=== PATIENT | female | born 1970 | race African-American/Black ===

== ENCOUNTER 2019-02-26 11:21 | Outpatient (CLI) | payer OTHER ==
[2019-02-26 13:02] LABS: Hemoglobin 9.7 g/dL (12.0-16.0); Mean Corpuscular HGB CONC 30.7 g/dL (32.0-36.0); Mean Corpuscular Hemoglobin 25.2 pg (27.0-31.0); Mean Corpuscular Volume 82.2 fL (78.0-98.0); Mean Platelet Volume 8.5 fL (7.4-10.4); Platelet Count 340 thou/uL (130-400); Red Blood Cell (RBC) Count 3.83 mill/uL (4.20-5.40); White Blood Cell (WBC) Count 8.3 thou/uL (4.8-10.8)
[2019-02-26 13:08] LABS: BHCG - Serum Negative (NEGATIVE); Pregs Control Background? CLEAR/WHITE (CLR/WHITE); Pregs Control Bar Appear? YES (CONTROL BAR)
[2019-02-26 13:17] LABS: Anion Gap 14 mmol/L (10-20); BUN (Urea Nitrogen) 8 mg/dL (7.0-18.7); Calc. Creatinine Clearance 0 mL/min (70-130); Calcium 9.1 mg/dL (7.8-10.44); Carbon Dioxide 19 mmol/L (22-29); Chloride 109 mmol/L (98-107); Estimated GFR-MDRD Greater than 90; Glucose 80 mg/dL (70-105); Potassium 4.5 mmol/L (3.5-5.1); Sodium 137 mmol/L (136-145)
== END 2019-02-26 11:22 | disposition home or self-care (01) ==
LOC: LABBT 11:21
PROVIDERS: ATTEND Obstetrics & Gynecology
DX: Z01.818 Encounter for other preprocedural examination (principal); N92.0 Excessive and frequent menstruation with regular cycle; D25.9 Leiomyoma of uterus, unspecified
CPT/HCPCS: 80048; 84703; 85027; 86850; 86900; 86901; 93005; 93010

== ENCOUNTER 2019-02-28 06:09 | Day surgery (SDC) | payer OTHER ==
[2019-02-26 11:37] VITALS: BMI 38.7
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
[2019-02-28] MEDS ORDERED: Gabapentin 300 MG CAP ONE (06:18)
[2019-02-28] MEDS ORDERED: CeleCOXIB 100 MG CAP ONE (06:18)
[2019-02-28] MEDS ORDERED: Famotidine/PF 20 mg/2ml Vial ONE ×2 (06:18→06:50)
[2019-02-28] MEDS ORDERED: Bupivacaine HCl 0.5%/Epinephrine 1:200,000/PF 30 ml Vial ONE (06:39)
[2019-02-28] MEDS ORDERED: Fentanyl 100 MCG/2 ML VIAL ONE ×2 (06:50→10:19)
[2019-02-28] MEDS ORDERED: Midazolam HCl 2 mg/2 ml Vial ONE (06:50)
[2019-02-28] MEDS ORDERED: SUGAMMADEX SODIUM 500 MG/5 ML VIAL ONE ×2 (08:06→10:02)
[2019-02-28] MEDS ORDERED: Promethazine HCl 25 MG/ML VIAL SLOW IVP PRN (09:34)
[2019-02-28] MEDS ORDERED: Promethazine HCl 25 MG/ML VIAL IM PRN ×2 (09:34→10:07)
[2019-02-28] MEDS ORDERED: Ondansetron HCl/PF 4 MG/2 ML Vial IVP PRN ×2 (09:34→11:17)
[2019-02-28] MEDS ORDERED: Ketamine 50 MG/ML (10ML VIAL) ONE (10:01)
[2019-02-28] MEDS ORDERED: Simethicone Chewable 80 MG TAB PO PRN (10:07)
[2019-02-28] MEDS ORDERED: Zolpidem Tartrate 5 MG TAB PO PRN (10:07)
[2019-02-28] MEDS ORDERED: Morphine 4 MG/ML VIAL SLOW IVP PRN (10:07)
[2019-02-28] MEDS ORDERED: Bisacodyl 10 MG SUPP PR PRN (10:07)
[2019-02-28] MEDS ORDERED: HYDROcodone/Acetaminophen 5/325 mg Tablet PO PRN ×2 (10:07)
[2019-02-28] MEDS ORDERED: diphenhydrAMINE 25 MG CAP PO PRN (10:07)
[2019-02-28] MEDS ORDERED: Morphine 4 MG/ML VIAL ONE (10:42)
[2019-02-28] MEDS ORDERED: PACU-Morphine 4MG/ML VIAL SLOW IVP PRN (11:17)
[2019-02-28] MEDS ORDERED: Promethazine HCl 25 MG/ML VIAL IM/IV PRN (11:17)
[2019-02-28] MEDS ORDERED: Non-Formulary Medication 1 EACH PO PRN (11:17)
[2019-02-28] MEDS ORDERED: Morphine Sulfate 2 MG/ML SYRINGE SLOW IVP PRN (11:17)
--- NOTE | 2019-02-28 12:35 | OP ---
DATE OF PROCEDURE: 02/28/2019 PREOPERATIVE DIAGNOSES: Menorrhagia, anemia, fibroids, and obesity. POSTOPERATIVE DIAGNOSES: Menorrhagia, anemia, fibroids, and obesity. PROCEDURES PERFORMED: Total laparoscopic hysterectomy, extracorporeal retrieval bag morcellation with bilateral salpingectomy. PRODUCT INSPECTION SUPERVISOR: Dasia Jackson PA-C ANESTHESIA: General endotracheal. SPECIMENS REMOVED: Uterus and bilateral tubes. ESTIMATED BLOOD LOSS: 100 mL. OPERATIVE FINDINGS: 1. Fibroid uterus approximately 12-week size, approximately 600 g with a large fundal fibroid, intramural. 2. Normal-appearing tubes and ovaries bilaterally. 3. Hemostasis, clear urine. COUNTS: Correct at the end of the procedure. DISPOSITION: Recovery room in good condition. DESCRIPTION OF PROCEDURE: After obtaining appropriate informed consent, the patient was taken to the operating room, where general endotracheal anesthesia was achieved without difficulty. The patient was prepped and draped in dorsal lithotomy position in Héctor stirrups. The patient's previous skin grafts in the area of the vulva were identified. They did not obstruct the ability to access the vagina. Sliding speculum was placed in the vagina. Cervix was identified and grasped with a single-tooth tenaculum. Uterus sounded and dilated up, and a TREY manipulator with 3.5 cervical vaginal sales technician and a 6 cm obturator were placed without difficulty. Wells catheter was placed and placed on a 60 mL of syringe. Nitro Worker changed his gloves, turned attention to abdominal portion of the procedure. The patient had a prior recent cholecystectomy with an approximately 15 mm skin incision 4 cm above the umbilicus and this was reopened and used for Veress needle insertion. Insufflation was carried out with carbon dioxide, maximum pressure of 15. A 12 mm trocar was introduced and confirmation of entry into the peritoneal cavity was noted. The patient was placed in steep Trendelenburg position, and right and left lateral trocars lateral to the epigastric vessels were placed without difficulty as well as an 11 mm research assistant port in the right upper quadrant. Cutdown on the supraumbilical trocar was carried out to approximately 2.5 to 3 cm and a small Rayshawn O placed inside along with the GelPort. DA Zoila robot was docked with monopolar scissors in the right hand and bipolar fenestrated forceps in the left. Findings as noted in the operative findings were noted. Adhesions of omentum were taken down in the pelvis, and the fallopian tube was removed in the usual manner on the patient's left. Utero-ovarian ligament was then coagulated and transected, the broad and the round on the patient's left. Fibroids were noted and extended down into the broad ligament on this side. This was carried down to level of the internal cervical os. Vesicouterine peritoneum was taken off sharply off the cervix and upper vagina. Bladder was backfilled several times to delineate it as the patient's morbid obesity made identification of all surgical planes moderately difficult. Skeletonization of the uterine vessels carried on the left. Attention was turned to the patient's right, where the identical procedure was carried out removing the fallopian tube, but then coagulating and transecting to the utero-ovarian, broad, round, and down the level of the internal cervical os. Skeletonization of the uterine vessels carried out on this side as well and the bladder was assured to be completely dissected off the cervix and upper vagina. Coagulation and transection of the uterine vessels on both side were carried out. The vagina was entered at 12 o'clock, extended from 12 to 3, 12 to 9, and from 6 to 9 and 6 to 3 amputating the specimen. Specimen was taken off the TREY manipulator and placed at the right upper quadrant for retrieval. Suction irrigation was carried out of the vaginal cuff and good hemostasis was noted. It was closed using a running continuous 0 PDS Stratafix suture from right to left and then back to right in a 2-layer closure technique. Suction irrigation was carried out. Good hemostasis was noted. Tisseel was applied across the all raw surfaces. Retrieval bag had been placed in the left upper quadrant and was pulled down of the pelvis and this specimen placed inside, it was pulled to the top of the GelPOINT, and then, da Zoila instruments were removed and the robot undocked. The retrieval bag was exteriorized, and the uterine specimen was morcellated using an 11-blade in the usual manner without trauma to the underlying vessels and without disruption of the retrieval bag. Once the entire specimen was removed, the small Rayshawn O was removed. The fascial edges were grasped and closed using running continuous 0 Vicryl suture on a UR5 needle. All other trocars had been removed and subcuticular closure with 4-0 Monocryl and Dermabond was carried out. The obturator balloon had already been removed from the vagina and it was re-inspected and noted to be dry. Wells was clear of urine, and the patient was awakened and extubated to recovery room in good condition. Job ID: [id number]
[2019-02-28] MEDS: Sodium Chloride 0.9% 1,000 ML IV SCH ×2 (13:04→18:04)
[2019-02-28] MEDS: Ondansetron PF 4 MG/2 ML Vial IVP PRN ×2 (14:52→20:50)
[2019-02-28] MEDS: Acetaminophen 1,000 MG in Premix Bag 1 BAG IVPB SCH ×3 (17:19→23:56)
[2019-02-28] MEDS ORDERED: CeleCOXIB 100 MG CAP PO SCH (21:00)
[2019-03-01] MEDS: Sodium Chloride 0.9% 1,000 ML IV SCH (02:08)
[2019-03-01] MEDS: Acetaminophen 1,000 MG in Premix Bag 1 BAG IVPB SCH (05:40)
[2019-03-01] MEDS ORDERED: Ibuprofen 800 MG TAB PO SCH (06:00)
[2019-03-01 06:39] LABS: Hemoglobin 7.9 g/dL (12.0-16.0); Mean Corpuscular HGB CONC 31.5 g/dL (32.0-36.0); Mean Corpuscular Hemoglobin 25.6 pg (27.0-31.0); Mean Corpuscular Volume 81.2 fL (78.0-98.0); Mean Platelet Volume 8.2 fL (7.4-10.4); Platelet Count 266 thou/uL (130-400); RBC Distribution Width 14.6 % (11.5-14.5); Red Blood Cell (RBC) Count 3.08 mill/uL (4.20-5.40); White Blood Cell (WBC) Count 8.6 thou/uL (4.8-10.8)
--- NOTE | 2019-03-01 11:02 | DIS ---
DATE OF ADMISSION: 02/28/2019 DATE OF DISCHARGE: 03/01/2019 TIME OF SERVICE: 0745 hours. HOSPITAL COURSE: The patient is postoperative day #1, hematocrit went from 32% to 25%, which is consistent with the patient's intraoperative blood loss as well as hydration. She is resting comfortably. She states her pain is 7/10, but with normal vital signs and not requesting pain medication. PHYSICAL EXAMINATION: VITAL SIGNS: Temperature 98.3, pulse 86, respirations 12, blood pressure 110/79,. T-max 98.8, maximum blood pressure 145/83. HEENT: Within normal limits. LUNGS: Clear to auscultation bilaterally. ABDOMEN: Soft and nontender with active bowel sounds in all 4 quadrants. Perineum is dry and incisions are dry x4. EXTREMITIES: Without clubbing, cyanosis, or edema. IMPRESSION: Status post total laparoscopic hysterectomy with bag retrieval morcellation, doing well, postoperative day #1. PLAN: Discharge home. Social work consult. This patient needs assistance, getting the pharmacy to picking table worker her postoperative pain medications, [place] and ibuprofen that were sent out from the office, and follow up at [facility] in 2 and 6 weeks. Job ID: [id number]
[2019-03-01 12:06] VITALS: BP 170/81; TEMP 99
== END 2019-03-01 14:07 | disposition home or self-care (01) ==
LOC: SDC 06:09 → 3SE 12:35 → UNDOADMOB 12:35 → UNDODISOB 03-01 14:07 → SDC 03-01 14:07
PROVIDERS: ATTEND Obstetrics & Gynecology
PROC: 0UT94ZZ Resection of Uterus, Percutaneous Endoscopic Approach (ICD-10-PCS; principal; 2019-03-01)
PROC: 0UT24ZZ Resection of Bilateral Ovaries, Percutaneous Endoscopic Approach (ICD-10-PCS; principal; 2019-03-01)
PROC: 0UT74ZZ Resection of Bilateral Fallopian Tubes, Percutaneous Endoscopic Approach (ICD-10-PCS; principal; 2019-03-01)
DX: D25.1 Intramural leiomyoma of uterus (principal); N72 Inflammatory disease of cervix uteri; N92.0 Excessive and frequent menstruation with regular cycle; D64.9 Anemia, unspecified; E66.9 Obesity, unspecified; Z68.38 Body mass index [BMI] 38.0-38.9, adult
CPT/HCPCS: 36415; 85027; 88307; J0131; J0670; J0690; J2250; J2270; J2405; J3010; S0028

== ENCOUNTER 2019-03-05 07:17 | Observation (INO) | payer OTHER ==
[2019-03-05 08:01] LABS: Bilirubin Negative (Negative); Blood, Urine Negative (Negative); Clarity Clear (Clear); Glucose, Urine (Dipstick) Normal (Negative); Leukocyte 250 Leu/uL (Negative); Nitrite Negative (Negative); Protein, Urine (Dipstick) 20 mg/dL (Neg-Trace); RBC/HPF 0-3 HPF (0-3); Urobilinogen Normal mg/dL (Less than 2)
[2019-03-05 08:11] LABS: Bacteria/HPF 1+ HPF (None Seen)
[2019-03-05] MEDS ORDERED: Ondansetron PF 4 MG/2 ML Vial ONE ×2 (08:29→10:47)
[2019-03-05 08:35] LABS: #Basophils 0.1 thou/uL (0.0-0.2); #Eosinphils 0.6 thou/uL (0.0-0.7); #Lymphocytes 3.1 thou/uL (1.20-3.40); #Monocytes 0.6 thou/uL (0.11-0.59); #Neutrophils 3.6 thou/uL (1.40-6.50); %Basophils 1.1 % (0.0-1.0); %Eosinophils 7.1 % (0.0-10.0); %Monocytes 7.8 % (0.0-10.0); %Neutrophils 45.1 % (42.0-75.0); Hemoglobin 8.8 g/dL (12.0-16.0); Mean Corpuscular HGB CONC 30.5 g/dL (32.0-36.0); Mean Corpuscular Hemoglobin 24.7 pg (27.0-31.0); Mean Corpuscular Volume 81.2 fL (78.0-98.0); Mean Platelet Volume 8.2 fL (7.4-10.4); Platelet Count 304 thou/uL (130-400); RBC Distribution Width 15.2 % (11.5-14.5); Red Blood Cell (RBC) Count 3.55 mill/uL (4.20-5.40)
[2019-03-05 08:43] LABS: PTT 27.6 SEC (22.9-36.1); Prothrombin Time 12.6 SEC (12.0-14.7)
[2019-03-05 08:55] LABS: ALT (SGPT) 46 U/L (8-55); AST (SGOT) 17 U/L (5-34); Albumin 3.8 g/dL (3.5-5.0); Alkaline Phosphatase 102 U/L (40-110); Anion Gap 13 mmol/L (10-20); BUN (Urea Nitrogen) 9 mg/dL (7.0-18.7); Bilirubin, Total 0.2 mg/dL (0.2-1.2); Calc. Creatinine Clearance 0 mL/min (70-130); Calcium 9.3 mg/dL (7.8-10.44); Carbon Dioxide 24 mmol/L (22-29); Chloride 108 mmol/L (98-107); Estimated GFR-MDRD 86; Globulin 3.8 g/dL (2.4-3.5); Glucose 91 mg/dL (70-105); Lipase 9 U/L (8-78); Potassium 3.6 mmol/L (3.5-5.1); Protein, Total 7.6 g/dL (6.0-8.3); Sodium 141 mmol/L (136-145)
[2019-03-05] MEDS ORDERED: Morphine 4 MG/ML VIAL ONE (10:47)
--- NOTE | 2019-03-05 11:16 | CT ---
CT ABDOMEN AND PELVIS WITH IV CONTRAST: HISTORY: Abdominal pain status post hysterectomy on 03/02/2019. FINDINGS: The lung base is unremarkable. There are changes of hysterectomy and cholecystectomy. The liver, sple en, pancreas, adrenal glands, and kidneys are normal. There is a small amount of free fluid in the pe lvis, likely from recent surgery. There is an anterior abdominal wall hernia containing a loop of small bowel. There is an air-fluid le codie with surrounding inflammatory change and a tiny amount of air in the subcutaneous fat. The possib ility of strangulation should be considered. The other possibility is an abscess. IMPRESSION: Findings suspicious for a strangulated bowel containing anterior abdominal wall hernia with questiona ble perforation. The other possibility is abscess formation in this region. Discussed over the telephone with ER physician Dr. Chano Dos Santos at 9:13 a.m. CODE RENETTA POS: TPC
[2019-03-05] MEDS ORDERED: Labetalol HCl 100 MG/20 ML VIAL ONE ×2 (11:36→16:18)
[2019-03-05] MEDS ORDERED: Piperacillin/Tazobactam 4.5 GM in Sodium Chloride 0.9% 100 ML IVPB SCH (12:00)
--- NOTE | 2019-03-05 12:14 | HP ---
HISTORY OF PRESENT ILLNESS: Ms. Landon is a 49-year-old morbidly obese woman who is postoperative day #5, status post laparoscopic total abdominal hysterectomy with bilateral salpingo-oophorectomy. The patient presented to the emergency department with 2-day history of worsening abdominal pain associated with nausea and bilious emesis. She denies any fevers or chills. She did have a bowel movement yesterday. PAST MEDICAL HISTORY: Past medical history is pertinent for uncontrolled hypertension, other pertinent past medical history includes chronic anemia. PAST SURGICAL HISTORY: Pertinent for laparoscopic cholecystectomy and laparoscopic total abdominal hysterectomy with bilateral salpingo-oophorectomy. SOCIAL HISTORY: The patient denies any cigarette smoking, ethanol, or illicit drug abuse. FAMILY HISTORY: Denies any family history of heart disease, diabetes mellitus, or cancer. PREHOSPITAL MEDICATIONS: Include hydrocodone 5 mg she was taking 1 to 2 p.o. q.4 hours p.r.n. pain, alternating this with ibuprofen 800 mg p.o. q.8 hours. ALLERGIES: THE PATIENT DENIES ANY KNOWN DRUG ALLERGIES. REVIEW OF SYSTEMS: Ten-point review of systems essentially unremarkable except as stated in past medical history and chief complaint. PHYSICAL EXAMINATION: GENERAL: Reveals a 49-year-old, normally developed woman, who is otherwise slightly confused, but interactive and appears to be in no acute distress at the time of my evaluation. VITAL SIGNS: Include blood pressure 173/86, pulse 84, respiratory rate 16, temperature 98.6 degrees Fahrenheit, oxygen saturation 100% on room air. HEENT: Normocephalic and atraumatic. Pupils are equal, round, and reactive to light and accommodation. HEART: Reveals regular rate and rhythm. No murmurs or gallops auscultated. LUNGS: Clear to auscultation bilaterally. Breathing, regular and nonlabored. ABDOMEN: Soft and obese with healed incisional scars. The patient does have a tender flocculent palpable mass, approximately 4 cm above the umbilicus in the midline, corresponding to a transverse supraumbilical port site. Liver and spleen nonpalpable below costal margin. LABORATORY DATA: Pertinent laboratory findings today include a CBC with 8,000 white blood cells, hemoglobin and hematocrit of 8.8 and 28.9 respectively. Platelet count 304,000. Metabolic profile; sodium 141, potassium 3.6, chloride is 108, bicarb is 24, BUN 9, creatinine 0.85, glucose 91. Lactic acid 0.9. Serum lipase is 9. I have personally reviewed the CT scan of the abdomen and pelvis, which is remarkable for midline abdominal wall hernia with an incarcerated small bowel loop. There is associated mesenteric fat stranding. There is associated punctate gas within the abdominal hernia sac, suspicious for perforation versus an active infectious process. IMPRESSION: Acute incarcerated versus strangulated incisional hernia. RECOMMENDATIONS: 1. Wound exploration and repair of abdominal wall hernia with possibility of partial small bowel resection and primary anastomosis. 2. Above findings and plan discussed with the patient who indicates understanding of information given. I have answered her questions. The patient has granted consent for this admission and surgical intervention. Job ID: [id number]
[2019-03-05] MEDS ORDERED: Bupivacaine/Epinephrine 0.25% 30 ML VIAL ONE (12:36)
[2019-03-05] MEDS ORDERED: Fentanyl 100 MCG/2 ML VIAL ONE ×2 (12:37→15:34)
[2019-03-05] MEDS ORDERED: Midazolam HCl 2 mg/2 ml Vial ONE (12:37)
[2019-03-05] MEDS ORDERED: HYDROmorphone 0.5 MG/0.5 ML SYRINGE ONE (12:38)
[2019-03-05] MEDS ORDERED: Ondansetron HCl/PF 4 MG/2 ML Vial IVP PRN (12:44)
[2019-03-05] MEDS ORDERED: Lidocaine 2% Jelly 5 ML TUBE ONE (13:05)
[2019-03-05] MEDS ORDERED: Piperacillin/Tazobactam 3.375 GM VIAL ONE (13:46)
[2019-03-05] MEDS ORDERED: SUGAMMADEX SODIUM 200 MG/2 ML VIAL ONE (14:21)
[2019-03-05] MEDS ORDERED: Dextrose 50% Abboject 50 ML SYRINGE SLOW IVP PRN (14:41)
[2019-03-05] MEDS ORDERED: Promethazine HCl 25 MG/ML VIAL IM PRN (14:41)
[2019-03-05] MEDS ORDERED: Ondansetron PF 4 MG/2 ML Vial IVP PRN (14:41)
[2019-03-05] MEDS ORDERED: Dextrose 5% in Water 1,000 ML IV PRN (14:41)
[2019-03-05] MEDS ORDERED: traMADol HCl 50 MG TAB PO PRN (14:43)
[2019-03-05] MEDS ORDERED: Amlodipine 10 MG TAB PO SCH (14:45)
[2019-03-05] MEDS ORDERED: hydrALAZINE 20 MG/ML VIAL SLOW IVP PRN (14:46)
--- NOTE | 2019-03-05 15:11 | RAD ---
Exam: Chest one view HISTORY:Line placement for preoperative planning. Comparison: 12/13/2017, 12/16/2014 FINDINGS: Cardiac silhouette:Magnification cardiac silhouette likely due to portable technique. Aorta: Slightly elongated Pulmonary vessels: Normal Costophrenic angles: Clear LUNGS: Diminished lung volumes. Subsegmental atelectasis or scar in the right lung base. Lines and tubes: Left-sided vascular catheter. Catheter may be in a persistent superior vena cava wit h coronary sinus termination versus a arterial placement. Pneumothorax: None Osseous abnormalities: None IMPRESSION: 1. Diminished lung volumes with subsegmental atelectasis versus scar in the right lung base. 2. Left-sided vascular catheter as described above. Results study discussed with Dr. Lobo 03/05/2019 at 3:08 PM Code CR
[2019-03-05 15:24] LABS: Actual Bicarbonate (HCO3a) 24.6 mEq/L (22-28); Base Excess (BEa) -1.3 mEq/L (-2.0 to +3.0); Calcium, Ionized 1.15 mmol/L (1.12-1.30); Carboxyhemoglobin (COHb) 1.5 gm% (0.0-3.0); Hemoglobin (Hb) 8.4 g/dL (12.0-16.0); Potassium - ABG Lab 3.26 mmol/L (3.70-5.30); pH, Arterial 7.34 (7.35-7.45)
[2019-03-05 15:25] LABS: O2 Tension (PaO2) 53.7 mmHg (80.0-100.0); Puncture Site LRA
[2019-03-05] MEDS: Sodium Chloride 0.9% 1,000 ML IV SCH ×2 (16:55→21:10)
--- NOTE | 2019-03-05 17:02 | OP ---
DATE OF PROCEDURE: 03/05/2019 PREOPERATIVE DIAGNOSIS: Acute incarcerated incisional hernia. POSTOPERATIVE DIAGNOSIS: Acute incarcerated incisional hernia. OPERATION PERFORMED: Repair of incarcerated incisional hernia. ANESTHESIA: General endotracheal. ESTIMATED BLOOD LOSS: Less than 5 mL. FLUIDS GIVEN: 1000 mL of crystalloids. COUNTS: Sponge and instrument counts were verified as correct x2. COMPLICATIONS: None apparent at the time of operation. INDICATIONS FOR OPERATION: A 49-year-old woman, who is postoperative day #5, status post laparoscopic total abdominal hysterectomy with bilateral salpingo-oophorectomy. The patient presented with a 2-day history of worsening abdominal pain, associated with nonreducible supraumbilical incisional margin mass. Radiographic and clinical examination was consistent with acute incarcerated incisional hernia with obstructed small bowel. The patient is brought to the operating room for exploration. Findings are consistent with incarcerated, but non-strangulated incisional hernia in the supraumbilical transverse incision. DESCRIPTION OF OPERATION: Informed consent was obtained from the patient who was brought to the operating room and placed in supine position. Following general anesthesia, abdomen was sterilely prepped and draped in usual fashion. The supraumbilical transverse incision was opened. Subcutaneous tissues were excised. Digital finger exploration revealed an extraperitoneal loop of small bowel within the subcutaneous pocket. This was traced down to the level of the fascia. Fascial sutures were excised around the incarcerated bowel. Bowel was examined and was viable. It was therefore reduced into the peritoneal cavity. The fascial edges were grasped with a Deon and elevated. The fascia was then reapproximated using interrupted sutures of #1 Vicryl. Subcutaneous tissues were irrigated clear with saline solution, noting good hemostasis in place. The subcutaneous tissue was approximated using interrupted sutures of 3-0 Vicryl. Skin incision was closed using bhakti. Sterile dressings were applied. The patient tolerated the operation without any apparent complication and was returned to recovery room in satisfactory condition. Job ID: [id number]
[2019-03-05 17:18] VITALS: BMI 38.7
[2019-03-05] MEDS ORDERED: Acetaminophen 500 MG TAB PO SCH ×2 (18:00→21:30)
[2019-03-05] MEDS ORDERED: traMADol HCl 50 MG TAB PO SCH (18:00)
[2019-03-05] MEDS ORDERED: Enoxaparin Sodium 40 MG/0.4 ML SYRINGE SC SCH (21:00)
[2019-03-05] MEDS ORDERED: Famotidine/PF 20 mg/2ml Vial SLOW IVP SCH (21:00)
[2019-03-05] MEDS ORDERED: Acetaminophen/Codeine 30-300mg Tablet PO PRN (21:35)
[2019-03-05] MEDS: Acetaminophen 325 MG TAB PO SCH (23:39)
--- NOTE | 2019-03-06 00:56 | PRG ---
DATE OF SERVICE: 03/06/2019 SUBJECTIVE: The patient was seen this evening, lying in bed, resting comfortably. She was easily aroused and reported pain was well controlled. She is postoperative day #0, status post repair of incarcerated incisional hernia. OBJECTIVE: VITAL SIGNS: Temperature 98.1, pulse 96, respirations 16, oxygen saturation 98% on 1 L nasal cannula, blood pressure 150/85. GENERAL: Well-appearing middle-aged female, lying in bed with no signs of acute distress. PULMONARY: Equal chest rise and fall, clear breath sounds bilaterally. No signs of acute respiratory distress. ABDOMEN: Soft, appropriately tender to palpation and nondistended. EXTREMITIES: 2+ pulses in all extremities. Gross motor and sensation are intact. ASSESSMENT: Postop day #0 status post repair of incarcerated incisional hernia. PLAN: Continue current clear liquid diet and normal saline at 120 an hour. Continue with p.o. pain medications. Previously was prescribed tramadol. The patient reported she has had bad interactions with tramadol before. She was changed to Tylenol No. 3 overnight. We will continue to monitor her at this time and pending return of bowel function. Job ID: [id number]
[2019-03-06] MEDS: Acetaminophen/Codeine 30-300mg Tablet PO PRN ×2 (04:55→11:02)
[2019-03-06] MEDS: Acetaminophen 325 MG TAB PO SCH (04:56)
[2019-03-06] MEDS ORDERED: Acetaminophen 500 MG TAB PO SCH (06:00)
[2019-03-06 07:33] LABS: Hemoglobin 8.1 g/dL (12.0-16.0); Mean Corpuscular HGB CONC 32.4 g/dL (32.0-36.0); Mean Corpuscular Hemoglobin 25.6 pg (27.0-31.0); Mean Platelet Volume 8.9 fL (7.4-10.4); Platelet Count 253 thou/uL (130-400); Red Blood Cell (RBC) Count 3.16 mill/uL (4.20-5.40); White Blood Cell (WBC) Count 11.1 thou/uL (4.8-10.8)
[2019-03-06 07:55] LABS: Band 3 % (5-11); Hypochromia SLIGHT = 6-15 cells (100X) (0-5/hpf); Lymphocytes 25 % (21-51); MDiff Complete? YES; Microcytosis SLIGHT = 6-15 cells (100X) (0-5/hpf); Monocytes 7 % (0-10); Neutrophil 60 % (42-75); Platelet Morphology Comment Appears Adequate; Polychromasia SLIGHT = 2-3 cells (100X) (0-2/hpf); Reactive Lymphocytes 5 % (0-10)
[2019-03-06 07:56] LABS: Anion Gap 15 mmol/L (10-20); BUN (Urea Nitrogen) 8 mg/dL (7.0-18.7); Calc. Creatinine Clearance 141 mL/min (70-130); Carbon Dioxide 20 mmol/L (22-29); Chloride 107 mmol/L (98-107); Estimated GFR-MDRD Greater than 90; Glucose 107 mg/dL (70-105); Magnesium 1.6 mg/dL (1.6-2.6); Phosphorus 3.7 mg/dL (2.3-4.7); Potassium 3.6 mmol/L (3.5-5.1); Sodium 138 mmol/L (136-145)
[2019-03-06] MEDS ORDERED: Amlodipine 10 MG TAB PO SCH (09:00)
[2019-03-06] MEDS ORDERED: Famotidine 20 MG TAB PO SCH (09:00)
[2019-03-06] MEDS ORDERED: Acetaminophen 325 MG TAB PO SCH (09:30)
--- NOTE | 2019-03-06 10:24 | PDOC.GSPN ---
Surgery Progress Note: Subj - Subjective Patient reports: no new complaints (Pt seen and examined with S/D Jesses and I agree with his notes.), had a bowel movement Narrative: Patient is a 49 yo F s/p repair of an incarcerated incisional hernia, post-op day 1. Pain has been well managed overnight and describes posterior thoracic and upper abdominal pain at 3/10. Patient has ambulated twice from bed to restroom to urinate, however has not ambulated in the dominguez since return from surgery . Reports nausea and decreased appetite with minimal PO intake of CLD. Denies fevers, chills, emesis, uncontrolled pain, incisional drainage, abdominal distension, passing flatus or stool. Reports difficulty finding ride home from the hospital. Surgery Progress Note: Obj - Vital signs Vital signs: Vital Signs - Most Recent Temp Pulse Resp BP Pulse Ox 98.3 F 89 16 161/74 H 98 03/06/19 07:20 03/06/19 07:20 03/06/19 07:20 03/06/19 07:20 03/06/19 07:20 - Physical Exam General: no distress, well developed, well nourished, moderate pain Cardiovascular: regular rate and rhythm, no murmur Respiratory: clear to auscultation, normal expansion, normal respiratory effort , breath sounds present Abdomen: soft, nondistended, positive bowel sounds, appropriately tender Hernia: none Psychiatric: memory intact, oriented to time, oriented to person, oriented to place, speech is normal Wound: dressing clean,dry,intact Surgery Progress Note: Results - Labs Result Diagrams: 03/06/19 07:22 03/06/19 07:22 Lab results: Laboratory Results - last 24 hr 03/06/19 03/06/19 07:22 07:22 WBC 11.1 H RBC 3.16 L Hgb 8.1 L Hct 24.9 L MCV 79.0 MCH 25.6 L MCHC 32.4 RDW 15.0 H Plt Count 253 MPV 8.9 Neutrophils % (Manual) 60 Band Neuts % (Manual) 3 L Lymphocytes % (Manual) 25 Reactive Lymphs % 5 Monocytes % (Manual) 7 Neutrophils # Not Reportable Lymphocytes # Not Reportable Hypochromia SLIGHT = 6-15 cells Plt Morphology Comment Appears Adequate Polychromasia SLIGHT = 2-3 cells Microcytosis SLIGHT = 6-15 cells Sodium 138 Potassium 3.6 Chloride 107 Carbon Dioxide 20 L Anion Gap 15 BUN 8 Creatinine 0.78 Estimated GFR (MDRD) Greater than 90 Glucose 107 H Calcium 9.0 Phosphorus 3.7 Magnesium 1.6 Surgery Progress Note: A/P - Problem (1) Incisional hernia, incarcerated Code(s): K43.0 - INCISIONAL HERNIA WITH OBSTRUCTION, WITHOUT GANGRENE Status: Resolved Assessment and Plan: Patient is a 49 yo F s/p repair of incarcerated incisional hernia, post-op day 1. Bowel was found to be incarcerated, have adequate blood supply, and was reduced without need for resection. Patient reports controlled abdominal pain, decreased PO intake. Denies emesis, flatus, stool, fevers, chills, uncontrolled pain, wound drainage. Will encourage ambulation with walking program, TID at minimum Advance diet to regular diet Will work with case management to secure ride home for discharge D/C home today if regular diet is tolerated and travel is secured (2) Hypertension Code(s): I10 - ESSENTIAL (PRIMARY) HYPERTENSION Status: Acute Assessment and Plan: HTN has been adequately controlled during inpatient stay with SBP from 140-160. Will provide prescription of outpatient medication and referral for PCP to further evaluate and manage. Discussed at length risks of HTN relating to stroke , [place], and renal disease and the need for follow-up and treatment
[2019-03-06 13:13] VITALS: BP 152/79; TEMP 98.2
[2019-03-06] MEDS ORDERED: FLU VACC QS2019-20(6MOS UP)/PF 60 MCG/0.5 ML SYRINGE IM ONE (17:30)
--- NOTE | 2019-03-07 15:26 | DIS ---
DATE OF ADMISSION: 03/05/2019 DATE OF DISCHARGE: 03/06/2019 ADMISSION DIAGNOSIS: Acute incarcerated versus strangulated incisional hernia. CONSULTATIONS: None. PROCEDURES: Repair of incarcerated incisional hernia. SUMMARY: The patient is a 49-year-old morbidly obese woman, who is postoperative day #5 status post laparoscopic total abdominal hysterectomy with bilateral salpingo-oophorectomy. The patient had presented to the emergency department with a 2 day history of worsening abdominal pain associated with nausea and bilious emesis. She denies fever, chills, and was having bowel functions. In the emergency department, she underwent evaluation and examination to include CT of her abdomen, which showed an incarcerated versus strangulated incisional hernia. She was taken to the operating room that day and underwent her above procedure, which she tolerated well. The next day she was ambulatory. Her pain was controlled. She was tolerating a diet. She was passing gas and she was able to be discharged home. The patient was instructed to follow up with her CLINICAL RESEARCHER surgeon within the next 2 weeks and to follow up with the surgical clinic with Dr. Salas in 2 weeks sooner as needed. Job ID: [id number]
== END 2019-03-06 15:40 | disposition home or self-care (01) ==
LOC: ERS 07:17 → SDC/OP 13:13 → SURG A 17:07
PROVIDERS: ADMIT Surgery; ATTEND Surgery
PROC: 0WUF0JZ Supplement Abdominal Wall with Synthetic Substitute, Open Approach (ICD-10-PCS; principal; 2019-03-05)
DX: K43.0 Incisional hernia with obstruction, without gangrene (principal); I10 Essential (primary) hypertension; D64.9 Anemia, unspecified; E66.01 Morbid (severe) obesity due to excess calories; Z68.38 Body mass index [BMI] 38.0-38.9, adult; Z90.722 Acquired absence of ovaries, bilateral; Z90.79 Acquired absence of other genital organ(s)
CPT/HCPCS: 36415; 36416; 71045; 74177; 80048; 80053; 81003; 81015; 82805; 83605; 83690; 83735; 84100; 85025; 85610; 85730; 96361; 96372; 96374; 96375; 96376; G0378; J0360; J0690; J1170; J1650; J2250; J2270; J2405; J2543; J2550; J3010; S0028

== ENCOUNTER 2019-06-01 15:11 | Emergency (ER) | payer OTHER ==
--- NOTE | 2019-06-01 16:00 | RAD ---
Portable frontal chest radiograph: 06/01/2019 COMPARISON: 03/05/2019 HISTORY: Right-sided chest pain FINDINGS: There is prominence of the cardiac silhouette. No pneumothorax or pleural fluid. No focal c onsolidation or alveolar edema. IMPRESSION: Prominent cardiac silhouette with no focal consolidation or alveolar edema.
[2019-06-01 16:04] LABS: #Eosinphils 0.2 thou/uL (0.0-0.7); #Monocytes 0.6 thou/uL (0.11-0.59); #Neutrophils 3.1 thou/uL (1.40-6.50); %Eosinophils 2.6 % (0.0-10.0); %Lymphocytes 43.8 % (21.0-51.0); %Monocytes 8.3 % (0.0-10.0); %Neutrophils 45.4 % (42.0-75.0); Hemoglobin 10.3 g/dL (12.0-16.0); Mean Corpuscular HGB CONC 31.4 g/dL (32.0-36.0); Mean Corpuscular Hemoglobin 24.1 pg (27.0-31.0); Mean Corpuscular Volume 76.8 fL (78.0-98.0); Mean Platelet Volume 8.9 fL (7.4-10.4); Platelet Count 268 thou/uL (130-400); RBC Distribution Width 16.7 % (11.5-14.5); Red Blood Cell (RBC) Count 4.26 mill/uL (4.20-5.40); White Blood Cell (WBC) Count 6.9 thou/uL (4.8-10.8)
[2019-06-01 16:23] LABS: ALT (SGPT) 12 U/L (8-55); AST (SGOT) 16 U/L (5-34); Albumin 4.1 g/dL (3.5-5.0); Alkaline Phosphatase 90 U/L (40-110); Anion Gap 12 mmol/L (10-20); BUN (Urea Nitrogen) 10 mg/dL (7.0-18.7); Bilirubin, Total 0.4 mg/dL (0.2-1.2); CK (CPK) 91 U/L (29-168); Calc. Creatinine Clearance 0 mL/min (70-130); Calcium 9.6 mg/dL (7.8-10.44); Carbon Dioxide 24 mmol/L (22-29); Chloride 107 mmol/L (98-107); Estimated GFR-MDRD Greater than 90; Globulin 3.4 g/dL (2.4-3.5); Glucose 90 mg/dL (70-105); Potassium 3.8 mmol/L (3.5-5.1); Protein, Total 7.5 g/dL (6.0-8.3); Sodium 139 mmol/L (136-145)
[2019-06-01] MEDS ORDERED: Ketorolac Tromethamine 60 MG/2 ML VIAL ONE (16:55)
== END 2019-06-01 17:43 | disposition home or self-care (01) ==
LOC: ERS 15:11
DX: R07.81 Pleurodynia (principal); R10.9 Unspecified abdominal pain; I10 Essential (primary) hypertension
CPT/HCPCS: 36415; 71045; 80053; 82550; 84484; 85025; 93005; 96372; J1885

== ENCOUNTER 2019-06-28 19:36 | Emergency (ER) | payer OTHER ==
[2019-06-28] MEDS ORDERED: Acetaminophen 500 MG TAB ONE (20:19)
--- NOTE | 2019-06-28 20:28 | RAD ---
XR Chest 1 View Portable History: Shortness of breath Comparison: Radiograph May 2019 Findings: Heart size mildly enlarged. Mild pulmonary venous congestion. No pneumothorax. No acute oss eous abnormality. Impression: Cardiomegaly and mild pulmonary venous congestion.
[2019-06-28 20:32] LABS: Pregnancy Test - Urine (BHCG) Negative (Negative); Pregu Control Background? CLEAR/WHITE (CLR/WHITE); Pregu Control Bar Appear? YES (CONTROL BAR); Specific Gravity 1.033 (1.002-1.036)
[2019-06-28 20:33] LABS: Bacteria/HPF 3+ HPF (None Seen); Bilirubin Negative (Negative); Blood, Urine Negative (Negative); Clarity Turbid (Clear); Glucose, Urine (Dipstick) Normal (Negative); Leukocyte 250 Leu/uL (Negative); Mucous/LPF 1+ LPF (<2+); Nitrite Negative (Negative); Protein, Urine (Dipstick) 30 mg/dL (Neg-Trace); Urobilinogen Normal mg/dL (Less than 2)
[2019-06-28 21:30] LABS: Bacteria/HPF None Seen HPF (None Seen); Bilirubin Negative (Negative); Blood, Urine Negative (Negative); Clarity Clear (Clear); Glucose, Urine (Dipstick) Normal (Negative); Leukocyte 25 Leu/uL (Negative); Mucous/LPF 2+ LPF (<2+); Nitrite Negative (Negative); Protein, Urine (Dipstick) 20 mg/dL (Neg-Trace); RBC/HPF 0-3 HPF (0-3); Squamous Epithelial 0-3 HPF (0-3); Urobilinogen Normal mg/dL (Less than 2); WBC/HPF 0-3 HPF (0-3)
== END 2019-06-28 21:59 | disposition home or self-care (01) ==
LOC: ERS 19:36
DX: R06.02 Shortness of breath (principal); I10 Essential (primary) hypertension
CPT/HCPCS: 51701; 71045; 81003; 81015; 81025; 93005; A4353